=== PATIENT | female | born 1945 | race Caucasian/White ===

== ENCOUNTER 2018-03-04 01:43 | Inpatient (IN) ==
[2018-03-04 03:41] LABS: Basophils % 0.5 % (0.0-0.8); Eosinophils % 0.7 % (0.00-10.9); Hematocrit 39.6 VOL% (35.7-47.0); Hemoglobin 13.4 GM/DL (12.0-16.0); Immature Granulocytes % 0.3 %; Immature Granulocytes Absolute 0.02 #; Lymphocytes # 1.9 10*3/uL (1.4-4.0); Lymphocytes % 30.1 % (21.3-54.2); Mean Corpuscular HGB Conc 33.8 GM/DL (32-36); Mean Corpuscular Hemoglobin 40 PG (27-34); Mean Corpuscular Volume 118.9 FL (87-102); Mean Platelet Volume 12.3 FL (9.6-12.0); Monocytes # 0.7 10*3/uL (0.11-0.8); Monocytes % 10.7 % (1.7-12.7); Neutrophils # 3.5 10*3/uL (1.4-7.4); Neutrophils % 57.7 % (38.7-73.9); Platelet Count 129 T/CUMM (130-400); Red Blood Count 3.33 MC/CUMM (3.8-5.5); Red Cell Distribution Width 17.8 % (9.3-17.3); White Blood Count 6.1 T/CUMM (4-12)
[2018-03-04 04:10] LABS: Albumin 3.2 G/DL (3.4-5.0); Bilirubin,Total 0.9 MG/DL (0.2-1.0); Calcium 8.8 MG/DL (8.5-10.1); Osmolality,Calculated 282.4 MOS/KG (273-304); Potassium 3.8 MMOL/L (3.5-5.1); Total Protein 7.5 G/DL (6.4-8.3)
[2018-03-04] MEDS ORDERED: ASPIRIN EC 325 MG TABLET PO STA (04:39)
[2018-03-04 04:41] LABS: Apearance,Urine Clear (Clear); Bilirubin,Urine Negative (Negative); Glucose,Urine (UA) Negative (Negative); Ketones,Urine Negative (Negative); Nitrite,Urine Negative (Negative); Protein,Urine 30 MG/DL; Urine Color Yellow (Yellow)
[2018-03-04 04:42] LABS: Blood, Urine 50 mg/dL (Negative)
[2018-03-04] MEDS ORDERED: cefTRIAXone 250 MG VIAL IV STA (04:53)
[2018-03-04] MEDS ORDERED: cefTRIAXone 1,000 MG VIAL ONE (05:29)
[2018-03-04] MEDS ORDERED: SODIUM CHLORIDE 0.9% 100 ML IV ONE (05:30)
[2018-03-04] MEDS ORDERED: diphenhydrAMINE CAP 25 MG CAPSULE PO PRN (05:44)
[2018-03-04] MEDS ORDERED: traZODone 50 MG TABLET PO PRN (05:44)
[2018-03-04] MEDS ORDERED: MORPHINE 4 MG/1 ML VIAL IV PRN (05:44)
[2018-03-04] MEDS ORDERED: ONDANSETRON 4 MG/2 ML VIAL IV PRN (05:44)
[2018-03-04] MEDS ORDERED: MAGNESIUM SULF RIDER 2 GM in PREMIX 1 EACH IV PRN (05:44)
[2018-03-04] MEDS ORDERED: LACTULOSE 20 GM/30 ML UDCUP PO PRN (05:44)
[2018-03-04] MEDS ORDERED: MAGNESIUM SULF RIDER 4 GM in PREMIX 1 EACH IV PRN (05:44)
[2018-03-04 07:26] LABS: Risk Ratio 5.72; Thyroid Stimulating Hormone 27.8 uIU/ml (0.358-3.74); VLDL CHOLESTEROL 30.6 MG/DL
[2018-03-04] MEDS ORDERED: METOPROLOL SUCCINATE XL 50 MG TABLET PO SCH (09:00)
[2018-03-04] MEDS: LEVOFLOXACIN INJ 500 MG in PREMIX 1 EACH IV SCH (09:19)
[2018-03-04] MEDS: ENOXAPARIN 40 MG/0.4 ML SYRINGE SUBCUT SCH (09:23)
[2018-03-04] MEDS: ASPIRIN EC 81 MG TABLET PO SCH (09:23)
[2018-03-04] MEDS: PANTOPRAZOLE 40 MG TABLET PO SCH (09:24)
[2018-03-04] MEDS: POTASSIUM CHLORIDE 20 MEQ TABLET PO PRN (10:35)
[2018-03-04 11:55] LABS: Free T4 (Free Thyroxine) 0.57 NG/DL (0.76-1.46)
[2018-03-04] MEDS: FUROSEMIDE 40 MG/4 ML VIAL IV SCH ×2 (12:16→16:32)
[2018-03-04] MEDS: CARVEDILOL 12.5 MG TABLET PO SCH ×2 (12:19→21:09)
[2018-03-04] MEDS ORDERED: FUROSEMIDE 40 MG/4 ML VIAL IV SCH (16:00)
[2018-03-05 04:30] LABS: Basophils # 0.1 10*3/uL (0.0-0.2); Basophils % 0.9 % (0.0-0.8); Eosinophils # 0.2 10*3/uL (0.0-0.87); Eosinophils % 3.8 % (0.00-10.9); Hematocrit 36.3 VOL% (35.7-47.0); Hemoglobin 12.3 GM/DL (12.0-16.0); Immature Granulocytes % 0.3 %; Immature Granulocytes Absolute 0.02 #; Lymphocytes # 2.3 10*3/uL (1.4-4.0); Lymphocytes % 39.4 % (21.3-54.2); Mean Corpuscular HGB Conc 33.9 GM/DL (32-36); Mean Corpuscular Hemoglobin 40 PG (27-34); Mean Corpuscular Volume 117.1 FL (87-102); Monocytes # 0.6 10*3/uL (0.11-0.8); Monocytes % 10.2 % (1.7-12.7); Neutrophils # 2.6 10*3/uL (1.4-7.4); Neutrophils % 45.4 % (38.7-73.9); Platelet Count 116 T/CUMM (130-400); Red Cell Distribution Width 17.4 % (9.3-17.3); White Blood Count 5.8 T/CUMM (4-12)
[2018-03-05 04:59] LABS: Calcium 8.4 MG/DL (8.5-10.1); Potassium 3.7 MMOL/L (3.5-5.1)
[2018-03-05 05:07] LABS: Giant Platelets Few; Hypochromasia 1+; Platelet Estimate Decreased
[2018-03-05] MEDS: LEVOTHYROXINE 50 MCG TABLET PO SCH (05:54)
[2018-03-05] MEDS: cefTRIAXone 1,000 MG in SYRINGE 1 EACH IV SCH (05:54)
[2018-03-05] MEDS ORDERED: LISINOPRIL 5 MG TABLET PO SCH (09:00)
[2018-03-05] MEDS: POTASSIUM CHLORIDE 20 MEQ TABLET PO PRN (09:03)
[2018-03-05] MEDS: ENOXAPARIN 40 MG/0.4 ML SYRINGE SUBCUT SCH (09:03)
[2018-03-05] MEDS: CARVEDILOL 12.5 MG TABLET PO SCH ×2 (09:03→20:54)
[2018-03-05] MEDS: PANTOPRAZOLE 40 MG TABLET PO SCH (09:03)
[2018-03-05] MEDS: ASPIRIN EC 81 MG TABLET PO SCH (09:03)
[2018-03-05] MEDS: FUROSEMIDE 40 MG/4 ML VIAL IV SCH ×2 (09:04→16:07)
[2018-03-05] MEDS: LEVOFLOXACIN INJ 500 MG in PREMIX 1 EACH IV SCH (09:12)
[2018-03-05] MEDS: VANCOMYCIN INJ 1,000 MG in SODIUM CHLORIDE 0.9% 250 ML IV SCH (14:17)
[2018-03-05] MEDS: ACETAMINOPHEN 325 MG TABLET PO PRN (20:54)
[2018-03-05] MEDS: SACUBITRIL/VALSARTAN 49-51 MG TABLET PO SCH (20:54)
[2018-03-06 04:20] LABS: Calcium 8.7 MG/DL (8.5-10.1); Osmolality,Calculated 282.5 MOS/KG (273-304); Potassium 3.4 MMOL/L (3.5-5.1)
[2018-03-06] MEDS: LEVOTHYROXINE 50 MCG TABLET PO SCH (06:05)
[2018-03-06] MEDS: cefTRIAXone 1,000 MG in SYRINGE 1 EACH IV SCH (06:06)
[2018-03-06] MEDS ORDERED: POTASSIUM CHLORIDE RIDER 10 MEQ in PREMIX 1 EACH IV PRN ×2 (08:34→11:08)
[2018-03-06] MEDS ORDERED: MAGNESIUM SULF RIDER 2 GM in PREMIX 1 EACH IV PRN ×3 (08:34→11:08)
[2018-03-06] MEDS ORDERED: DIAZEPAM 5 MG TABLET PO ONE (08:34)
[2018-03-06] MEDS ORDERED: diphenhydrAMINE CAP 25 MG CAPSULE PO ONE (08:34)
[2018-03-06] MEDS: SACUBITRIL/VALSARTAN 49-51 MG TABLET PO SCH ×2 (09:21→21:15)
[2018-03-06] MEDS: CARVEDILOL 12.5 MG TABLET PO SCH ×2 (09:21→21:05)
[2018-03-06] MEDS: ASPIRIN EC 81 MG TABLET PO SCH (09:21)
[2018-03-06] MEDS: PANTOPRAZOLE 40 MG TABLET PO SCH (09:21)
[2018-03-06] MEDS: ENOXAPARIN 40 MG/0.4 ML SYRINGE SUBCUT SCH (09:22)
[2018-03-06] MEDS: LEVOFLOXACIN INJ 500 MG in PREMIX 1 EACH IV SCH (09:22)
[2018-03-06] MEDS: POTASSIUM CHLORIDE 20 MEQ TABLET PO SCH (09:24)
[2018-03-06] MEDS: FUROSEMIDE 40 MG/4 ML VIAL IV SCH ×2 (10:02→16:59)
[2018-03-06] MEDS: VANCOMYCIN INJ 1,000 MG in SODIUM CHLORIDE 0.9% 250 ML IV SCH (10:11)
[2018-03-06] MEDS ORDERED: POTASSIUM CHLORIDE 20 MEQ/15 ML UDCUP PO ONE (10:18)
[2018-03-06] MEDS ORDERED: MAGNESIUM SULF RIDER 4 GM in PREMIX 1 EACH IV PRN (10:57)
[2018-03-06] MEDS: ACETAMINOPHEN 325 MG TABLET PO PRN (14:01)
[2018-03-06] MEDS: POTASSIUM CHLORIDE 20 MEQ TABLET PO PRN ×2 (18:24→21:15)
[2018-03-06] MEDS: ROSUVASTATIN 20 MG TABLET PO SCH (21:05)
[2018-03-07] MEDS: POTASSIUM CHLORIDE 20 MEQ TABLET PO PRN (00:20)
[2018-03-07] MEDS: SODIUM CHLORIDE 0.45% 1,000 ML IV SCH ×2 (00:57→09:12)
[2018-03-07] MEDS: VANCOMYCIN INJ 1,000 MG in SODIUM CHLORIDE 0.9% 250 ML IV SCH (03:13)
[2018-03-07 03:52] LABS: Basophils # 0.1 10*3/uL (0.0-0.2); Basophils % 0.6 % (0.0-0.8); Eosinophils # 0.2 10*3/uL (0.0-0.87); Eosinophils % 1.9 % (0.00-10.9); Hematocrit 42.9 VOL% (35.7-47.0); Hemoglobin 14.9 GM/DL (12.0-16.0); Immature Granulocytes % 0.3 %; Immature Granulocytes Absolute 0.03 #; Lymphocytes # 1.9 10*3/uL (1.4-4.0); Lymphocytes % 20.2 % (21.3-54.2); Mean Corpuscular HGB Conc 34.7 GM/DL (32-36); Mean Corpuscular Hemoglobin 40 PG (27-34); Mean Corpuscular Volume 114.4 FL (87-102); Mean Platelet Volume 13.5 FL (9.6-12.0); Monocytes # 1.1 10*3/uL (0.11-0.8); Monocytes % 11.5 % (1.7-12.7); Neutrophils # 6.1 10*3/uL (1.4-7.4); Neutrophils % 65.5 % (38.7-73.9); Platelet Count 142 T/CUMM (130-400); Red Blood Count 3.75 MC/CUMM (3.8-5.5); White Blood Count 9.3 T/CUMM (4-12)
[2018-03-07 03:57] LABS: INR 1.2; PT Patient Result 12.2 SECS
[2018-03-07 03:58] LABS: INR 1.1
[2018-03-07 04:09] LABS: Calcium 8.2 MG/DL (8.5-10.1); Osmolality,Calculated 282.5 MOS/KG (273-304); Potassium 4.5 MMOL/L (3.5-5.1); Potassium 4.6 MMOL/L (3.5-5.1)
[2018-03-07] MEDS: cefTRIAXone 1,000 MG in SYRINGE 1 EACH IV SCH (06:07)
[2018-03-07] MEDS ORDERED: HEPARIN/NACL 0.9% 2 UNITS/ML 1,000 ML IV ONE (06:50)
[2018-03-07] MEDS: SACUBITRIL/VALSARTAN 49-51 MG TABLET PO SCH ×3 (07:03→21:22)
[2018-03-07] MEDS: ENOXAPARIN 40 MG/0.4 ML SYRINGE SUBCUT SCH ×2 (07:03→09:11)
[2018-03-07] MEDS: POTASSIUM CHLORIDE 20 MEQ TABLET PO SCH ×2 (07:04→09:10)
[2018-03-07] MEDS: PANTOPRAZOLE 40 MG TABLET PO SCH ×2 (07:04→09:19)
[2018-03-07] MEDS: CARVEDILOL 12.5 MG TABLET PO SCH ×3 (07:05→21:23)
[2018-03-07] MEDS: ASPIRIN EC 81 MG TABLET PO SCH ×2 (07:05→09:10)
[2018-03-07] MEDS ORDERED: LIDOCAINE 1% 20 ML VIAL ONE (07:25)
[2018-03-07] MEDS ORDERED: MIDAZOLAM 2 MG/2 ML VIAL ONE (07:26)
[2018-03-07] MEDS ORDERED: fentaNYL 100 MCG/2 ML VIAL ONE (07:26)
[2018-03-07] MEDS ORDERED: DIAZEPAM 5 MG TABLET PO ONE (07:30)
[2018-03-07] MEDS ORDERED: diphenhydrAMINE CAP 25 MG CAPSULE PO ONE (07:30)
[2018-03-07] MEDS ORDERED: NITROGLYCERIN SL 0.4 MG TABLET SL PRN (08:04)
[2018-03-07] MEDS: LEVOFLOXACIN INJ 500 MG in PREMIX 1 EACH IV SCH (09:12)
[2018-03-07] MEDS: FUROSEMIDE 40 MG/4 ML VIAL IV SCH ×2 (09:13→16:36)
[2018-03-07] MEDS: LEVOTHYROXINE 50 MCG TABLET PO SCH (09:13)
[2018-03-07] MEDS: ROSUVASTATIN 20 MG TABLET PO SCH (21:22)
[2018-03-08 03:08] LABS: Basophils % 0.5 % (0.0-0.8); Eosinophils # 0.2 10*3/uL (0.0-0.87); Eosinophils % 2.3 % (0.00-10.9); Hematocrit 41.3 VOL% (35.7-47.0); Hemoglobin 14.5 GM/DL (12.0-16.0); Immature Granulocytes % 0.3 %; Immature Granulocytes Absolute 0.03 #; Lymphocytes # 1.5 10*3/uL (1.4-4.0); Lymphocytes % 17.6 % (21.3-54.2); Mean Corpuscular HGB Conc 35.1 GM/DL (32-36); Mean Corpuscular Hemoglobin 39 PG (27-34); Mean Corpuscular Volume 111.6 FL (87-102); Mean Platelet Volume 13.3 FL (9.6-12.0); Monocytes # 1.2 10*3/uL (0.11-0.8); Monocytes % 13.8 % (1.7-12.7); Neutrophils # 5.7 10*3/uL (1.4-7.4); Neutrophils % 65.5 % (38.7-73.9); Platelet Count 143 T/CUMM (130-400); Red Cell Distribution Width 16.7 % (9.3-17.3); White Blood Count 8.7 T/CUMM (4-12)
[2018-03-08 03:33] LABS: Calcium 8.7 MG/DL (8.5-10.1); Osmolality,Calculated 282.5 MOS/KG (273-304); Potassium 4.4 MMOL/L (3.5-5.1)
[2018-03-08] MEDS: cefTRIAXone 1,000 MG in SYRINGE 1 EACH IV SCH (06:08)
[2018-03-08] MEDS: LEVOTHYROXINE 50 MCG TABLET PO SCH (06:08)
[2018-03-08] MEDS: LEVOFLOXACIN INJ 500 MG in PREMIX 1 EACH IV SCH (09:29)
[2018-03-08] MEDS: ENOXAPARIN 40 MG/0.4 ML SYRINGE SUBCUT SCH (09:30)
[2018-03-08] MEDS: CARVEDILOL 12.5 MG TABLET PO SCH (09:30)
[2018-03-08] MEDS: PANTOPRAZOLE 40 MG TABLET PO SCH (09:30)
[2018-03-08] MEDS: POTASSIUM CHLORIDE 20 MEQ TABLET PO SCH (09:30)
[2018-03-08] MEDS: ASPIRIN EC 81 MG TABLET PO SCH (09:30)
[2018-03-08] MEDS: FUROSEMIDE 40 MG/4 ML VIAL IV SCH (09:30)
[2018-03-08] MEDS: SACUBITRIL/VALSARTAN 49-51 MG TABLET PO SCH ×2 (10:00→21:12)
[2018-03-08] MEDS ORDERED: MAGNESIUM SULF RIDER 4 GM in PREMIX 1 EACH IV PRN (12:41)
[2018-03-08] MEDS ORDERED: MAGNESIUM SULF RIDER 2 GM in PREMIX 1 EACH IV PRN (12:41)
[2018-03-08] MEDS ORDERED: FUROSEMIDE 40 MG/4 ML VIAL IV SCH (16:00)
[2018-03-08] MEDS: ROSUVASTATIN 20 MG TABLET PO SCH (21:12)
[2018-03-08] MEDS: CARVEDILOL 6.25 MG TABLET PO SCH (21:13)
[2018-03-09] MEDS: APIXABAN 2.5 MG TABLET PO SCH ×2 (00:24→09:54)
[2018-03-09] MEDS: cefTRIAXone 1,000 MG in SYRINGE 1 EACH IV SCH (05:40)
[2018-03-09] MEDS: LEVOTHYROXINE 50 MCG TABLET PO SCH (05:43)
[2018-03-09 07:04] LABS: Basophils % 0.3 % (0.0-0.8); Eosinophils # 0.2 10*3/uL (0.0-0.87); Eosinophils % 1.9 % (0.00-10.9); Hemoglobin 14.2 GM/DL (12.0-16.0); Immature Granulocytes % 0.3 %; Immature Granulocytes Absolute 0.03 #; Lymphocytes # 1.8 10*3/uL (1.4-4.0); Lymphocytes % 20.5 % (21.3-54.2); Mean Corpuscular HGB Conc 35.5 GM/DL (32-36); Mean Corpuscular Hemoglobin 40 PG (27-34); Mean Corpuscular Volume 111.4 FL (87-102); Mean Platelet Volume 13.1 FL (9.6-12.0); Monocytes # 1.3 10*3/uL (0.11-0.8); Monocytes % 14.8 % (1.7-12.7); Neutrophils # 5.5 10*3/uL (1.4-7.4); Neutrophils % 62.2 % (38.7-73.9); Platelet Count 146 T/CUMM (130-400); Red Blood Count 3.59 MC/CUMM (3.8-5.5); Red Cell Distribution Width 16.7 % (9.3-17.3); White Blood Count 8.9 T/CUMM (4-12)
[2018-03-09 07:23] LABS: Hypochromasia 1+; Platelet Estimate Normal; Target Cells Few
[2018-03-09 07:25] LABS: Calcium 8.2 MG/DL (8.5-10.1); Potassium 4.5 MMOL/L (3.5-5.1)
[2018-03-09] MEDS ORDERED: FUROSEMIDE 40 MG TABLET PO SCH ×2 (09:00→16:00)
[2018-03-09] MEDS: CARVEDILOL 6.25 MG TABLET PO SCH (09:54)
[2018-03-09] MEDS: ASPIRIN EC 81 MG TABLET PO SCH (09:54)
[2018-03-09] MEDS: PANTOPRAZOLE 40 MG TABLET PO SCH (09:54)
[2018-03-09] MEDS: POTASSIUM CHLORIDE 20 MEQ TABLET PO SCH (09:54)
[2018-03-09] MEDS: SACUBITRIL/VALSARTAN 49-51 MG TABLET PO SCH (09:58)
[2018-03-09] MEDS: LEVOFLOXACIN INJ 500 MG in PREMIX 1 EACH IV SCH (10:03)
[2018-03-09 17:10] VITALS: BP 103/57
== END 2018-03-09 17:13 | disposition home health service (06) | DRG 287 ==
LOC: N.ED 01:43 → N.EDINP 05:44 → SUATTDRO 05:44 → N.TELES 06:04
PROVIDERS: ADMIT Internal Medicine; ATTEND Internal Medicine